=== PATIENT | male | born 1955 | race Caucasian/White ===

== ENCOUNTER 2022-07-12 20:02 | Emergency (ER) | payer MEDICARE ==
[~2022-07-12] VITALS: Ht 157.5 cm; Wt 88.5 kg
[2022-07-12 20:20] VITALS: BP_SYST 166
--- NOTE | 2022-07-12 22:05 | NUR ---
Pt brought by Shyanne [id number], pt presents to ER with lower back pain, denies trauma pt was diagnosed with covid last , skin pink and warm, cap refill <3, VSS, will cont to monitor.
[2022-07-12] MEDS ORDERED: KETOROLAC TROMETHAMINE 60 MG/2 ML VIAL IM ONE (22:30)
--- NOTE | 2022-07-12 23:17 | NUR ---
MD Schilling at bedside examining pt.
[2022-07-13] MEDS ORDERED: NAPR-690 PO (00:42)
--- NOTE | 2022-07-13 00:52 | NUR ---
Patient given written and verbal discharge instructions and verbalizes understanding. ER MD Schilling discussed with patient the results and treatment provided. Patient in stable condition. ID arm band removed. Rx of Naproxen sent to preferred pharmacy. Patient educated on pain management and to follow up with PMD. Pain Scale 0/10 Opportunity for questions provided and answered. Medication side effect fact sheet provided.
[2022-07-13 00:55] VITALS: BP_SYST 129
== END 2022-07-13 00:55 | disposition home or self-care (01) ==
LOC: SED 20:02
DX: S33.5XXA Sprain of ligaments of lumbar spine, initial encounter (principal); E11.9 Type 2 diabetes mellitus without complications; I10 Essential (primary) hypertension; E78.5 Hyperlipidemia, unspecified; Z79.899 Other long term (current) drug therapy; X58.XXXA Exposure to other specified factors, initial encounter; Y93.89 Activity, other specified; Y92.89 Other specified places as the place of occurrence of the external cause; Y99.8 Other external cause status
CPT/HCPCS: 99283; 96372; J1885